=== PATIENT | male | born 1980 | race African-American/Black ===

== ENCOUNTER 2019-10-02 19:35 | Emergency (ER) | payer MEDICARE ==
[~2019-10-02] VITALS: Ht 188 cm; Wt 105.0 kg
[2019-10-02 19:55] VITALS: BP 120/65
== END 2019-10-02 22:54 | disposition left against medical advice (07) ==
LOC: ER 19:35
DX: Z53.21 Procedure and treatment not carried out due to patient leaving prior to being seen by health care provider (principal); R07.9 Chest pain, unspecified
CPT/HCPCS: 93005